=== PATIENT | female | born 1950 | race Caucasian/White ===

== ENCOUNTER 2017-07-18 13:36 | Outpatient (CLI) | payer BC | END 2017-07-18 13:37 | disposition home or self-care (01) | LOC: BICMAMMO 13:36 | PROVIDERS: ATTEND Internal Medicine Hematology & Oncology | DX: Z12.31 Encounter for screening mammogram for malignant neoplasm of breast (principal); R92.1 Mammographic calcification found on diagnostic imaging of breast | CPT/HCPCS: G0206-LT; G0279 ==

== ENCOUNTER 2017-11-29 15:15 | Outpatient (CLI) | payer BC | END 2017-11-29 15:16 | disposition home or self-care (01) | LOC: BICMAMMO 15:15 | PROVIDERS: ATTEND Internal Medicine Hematology & Oncology | DX: M85.80 Other specified disorders of bone density and structure, unspecified site (principal); C50.111 Malignant neoplasm of central portion of right female breast | CPT/HCPCS: 77080 ==

== ENCOUNTER 2018-07-19 14:33 | Outpatient (CLI) | payer BC | END 2018-07-19 14:34 | disposition home or self-care (01) | LOC: BICMAMMO 14:33 | PROVIDERS: ATTEND Internal Medicine Hematology & Oncology | DX: Z08 Encounter for follow-up examination after completed treatment for malignant neoplasm (principal); Z85.3 Personal history of malignant neoplasm of breast; Z80.3 Family history of malignant neoplasm of breast | CPT/HCPCS: G0279 ==

== ENCOUNTER 2019-07-22 14:51 | Outpatient (CLI) | payer BC ==
--- NOTE | 2019-07-22 15:37 | MMO ---
Left Breast MAMMO Unilat Diag [facility]DI LT+KARE[facility]. CLINICAL HISTORY: Patient is 68 years old and is seen for diagnostic exam. The patient has the following family history of breast cancer: sister, at age 65. The patient has a history of malignant (generic) in the left breast at age 65. The patient has a history of right Lumpectomy at age 65 - malignant and right Mastectomy at age 65 - malignant. VIEWS: The views performed were: left craniocaudal with tomosynthesis; left mediolateral oblique with tomosynthesis; left mediolateral with tomosynthesis; and left exaggerated craniocaudal. FILMS COMPARED: The present examination has been compared to prior imaging studies performed at [facility] [place] on [place]/18/[place] and 07/19/2018, and at [facility] on 06/21/2016 and 06/22/2016. This study has been interpreted with the assistance of computer-aided detection. MAMMOGRAM FINDINGS: The breast is heterogeneously dense, which could obscure a lesion on mammography. There are stable benign appearing calcifications seen in the left breast. There are no suspicious masses, suspicious calcifications, or new areas of architectural distortion. IMPRESSION: THERE IS NO MAMMOGRAPHIC EVIDENCE OF MALIGNANCY. A ROUTINE FOLLOW-UP MAMMOGRAM IN 1 YEAR IS RECOMMENDED. THE RESULTS OF THIS EXAM WERE SENT TO THE PATIENT. ACR BI-RADS Category 2 - Benign finding MAMMOGRAPHY NOTE: 1. A negative mammogram report should not delay a biopsy if a dominant of clinically suspicious mass is present. 2. Approximately 10% to 15% of breast cancers are not detected by mammography. 3. Adenosis and dense breasts may obscure an underlying neoplasm. Reported by: FIDELIA HERNANDEZ MD Electonically Signed: [id number]
== END 2019-07-22 14:52 | disposition home or self-care (01) ==
LOC: BICMAMMO 14:51
PROVIDERS: ATTEND Internal Medicine Hematology & Oncology
DX: C50.111 Malignant neoplasm of central portion of right female breast (principal)
CPT/HCPCS: G0279

== ENCOUNTER 2019-11-11 09:23 | Day surgery (SDC) | payer OTHER ==
[~2019-11-11 09:23] MED LIST: Bupivacaine HCl 0.5%/Epinephrine 1:200,000/PF 30 ml Vial ONE; Lidocaine 1% PF 5 ML VIAL ONE; Metoclopramide HCl 10 MG/2 ML VIAL ONE; Ondansetron PF 4 MG/2 ML Vial ONE; PHENYLEPHRINE-NS 100 MCG/ML 10 ML SYRINGE ONE; PROPOFOL 200 MG/20 ML VIAL ONE; Succinylcholine Chloride 20 MG/ML 10 ml SYRINGE FS ONE
[2019-11-11] MEDS ORDERED: Midazolam HCl 2 mg/2 ml Vial ONE ×2 (11:25→13:43)
[2019-11-11] MEDS ORDERED: Fentanyl 100 MCG/2 ML VIAL ONE ×2 (11:25→13:42)
[2019-11-11] MEDS ORDERED: Lidocaine 1% (PF) 30 ML VIAL ONE (11:25)
--- NOTE | 2019-11-11 14:26 | OP ---
DATE OF PROCEDURE: 11/11/2019 PROCEDURE PERFORMED: Open reduction and internal fixation of left distal radius fracture. PREOPERATIVE DIAGNOSIS: Left displaced distal radial fracture. POSTOPERATIVE DIAGNOSIS: Left displaced distal radial fracture. COMPLICATIONS: None. ESTIMATED BLOOD LOSS: Minimal. LINING STUFFER: Shawn Valdez PA-C IMPLANT: Synthes volar distal radial plate with multiple locking and nonlocking screws. INDICATIONS: Ms. Liang is a 68-year-old female, who fell and fractured her left arm. She was indicated for open reduction and internal fixation of left distal radius. She has been indicated for the procedure to restore anatomic alignment and promote healing. Risks have been reviewed in detail. She elected to proceed with the operation. DESCRIPTION OF PROCEDURE: Ms. Liang was identified in the preoperative holding area. Her correct extremity was marked. She was carried to the operating room. She was positioned supine. General anesthesia was induced. A multidisciplinary time-out was performed. The left upper extremity was prepped and draped in sterile fashion. We began the procedure with incision over the FCR tendon. We dissected down through the subcutaneous tissues to the fascia level. We opened the FCR tendon sheath and retracted the tendon. We opened the deep aspect of the sheath at this point. We then elevated the pronator quadratus muscle from the bone. This exposed the underlying distal radial fracture. We irrigated with copious lavage. We then reduced our fracture with a [place] elevator. We held the fracture in its reduced position with K-wire fixation. We then applied a Synthes volar distal radial plate. An x-ray was taken to confirm position and alignment. We then placed multiple screws proximally as well as multiple locking screws distally. This locked the plate to the bone and held our reduction well. There were no complications. We took final images. We thoroughly irrigated with copious lavage. We then closed the wounds in layers appropriately. A sterile dressing and a splint was placed. The patient was taken to the recovery room at this point in good condition. Job ID: [id number]
--- NOTE | 2019-11-11 14:55 | RAD ---
Exam:Intraprocedure fluoroscopy HISTORY: ORIF left wrist fracture COMPARISON: None FINDINGS: 2 intraprocedural fluoroscopic views demonstrate internal fixation plate traversing the dis breann radius. Near anatomic alignment. Exposure: 17.4 seconds, 0.31 mGy IMPRESSION: Intraprocedure fluoroscopy as above
== END 2019-11-11 16:45 | disposition home or self-care (01) ==
LOC: SDC 09:23
PROVIDERS: ATTEND Orthopaedic Surgery
PROC: 0PSJ04Z Reposition Left Radius with Internal Fixation Device, Open Approach (ICD-10-PCS; principal; 2019-11-11)
PROC: 3E0T3BZ Introduction of Anesthetic Agent into Peripheral Nerves and Plexi, Percutaneous Approach (ICD-10-PCS; principal; 2019-11-11)
DX: S52.502A Unspecified fracture of the lower end of left radius, initial encounter for closed fracture (principal); G89.18 Other acute postprocedural pain; Z88.5 Allergy status to narcotic agent; Z88.6 Allergy status to analgesic agent; Z88.8 Allergy status to other drugs, medicaments and biological substances
CPT/HCPCS: 36416; 76000; 93005; 93010; C1713; J0670; J0690; J2001; J2250; J2405; J2704; J2765; J3010

== ENCOUNTER 2020-07-23 10:12 | Outpatient (CLI) | payer MEDICARE, OTHER ==
--- NOTE | 2020-07-23 10:48 | MMO ---
Left Breast MAMMO Unilat Diag DDI LT+KAREEM. CLINICAL HISTORY: Patient is 69 years old and is seen for diagnostic exam. The patient has the following family history of breast cancer: sister, at age 65. The patient has a history of malignant (generic) in the left breast at age 65. The patient has a history of right Lumpectomy at age 65 - malignant and right Mastectomy at age 65 - malignant. VIEWS: The views performed were: left craniocaudal with tomosynthesis; left mediolateral oblique with tomosynthesis; and left mediolateral with tomosynthesis. FILMS COMPARED: The present examination has been compared to prior imaging studies performed at [facility] on 07/18/2017, 07/19/2018 and 07/22/2019, and at [facility] on 06/22/2016. This study has been interpreted with the assistance of computer-aided detection. MAMMOGRAM FINDINGS: The breast is heterogeneously dense, which could obscure a lesion on mammography. There are stable benign appearing calcifications seen in the left breast. There are no suspicious masses, suspicious calcifications, or new areas of architectural distortion. IMPRESSION: THERE IS NO MAMMOGRAPHIC EVIDENCE OF MALIGNANCY. A ROUTINE FOLLOW-UP MAMMOGRAM IN 1 YEAR IS RECOMMENDED. THE RESULTS OF THIS EXAM WERE SENT TO THE PATIENT. ACR BI-RADS Category 2 - Benign finding MAMMOGRAPHY NOTE: 1. A negative mammogram report should not delay a biopsy if a dominant of clinically suspicious mass is present. 2. Approximately 10% to 15% of breast cancers are not detected by mammography. 3. Adenosis and dense breasts may obscure an underlying neoplasm. Reported by: JEFF HAHN MD Electonically Signed: [id number]
== END 2020-07-23 10:13 | disposition home or self-care (01) ==
LOC: BICMAMMO 10:12
PROVIDERS: ATTEND Internal Medicine Hematology & Oncology
DX: C50.111 Malignant neoplasm of central portion of right female breast (principal); Z98.890 Other specified postprocedural states
CPT/HCPCS: G0279

== ENCOUNTER 2021-07-26 09:57 | Outpatient (CLI) | payer MEDICARE | END 2021-07-26 09:58 | disposition home or self-care (01) | LOC: BICMAMMO 09:57 | PROVIDERS: ATTEND Internal Medicine Hematology & Oncology | DX: Z08 Encounter for follow-up examination after completed treatment for malignant neoplasm (principal); M85.89 Other specified disorders of bone density and structure, multiple sites; Z85.3 Personal history of malignant neoplasm of breast | CPT/HCPCS: 77065; 77080; G0279 ==

== ENCOUNTER 2022-08-12 09:47 | Outpatient (CLI) | payer OTHER | END 2022-08-12 09:48 | disposition home or self-care (01) | LOC: BICMAMMO 09:47 | PROVIDERS: ATTEND Family Medicine | DX: Z12.31 Encounter for screening mammogram for malignant neoplasm of breast (principal); Z98.890 Other specified postprocedural states; Z90.11 Acquired absence of right breast and nipple; Z85.3 Personal history of malignant neoplasm of breast; Z80.3 Family history of malignant neoplasm of breast | CPT/HCPCS: 77063; 77067 ==

== ENCOUNTER 2023-03-06 08:42 | Outpatient (CLI) | payer OTHER ==
[2023-03-06] MEDS ORDERED: Iopamidol 370 76% 100 ML VIAL ONE (09:59)
== END 2023-03-06 08:43 | disposition home or self-care (01) ==
LOC: CT 08:42
PROVIDERS: ATTEND Family Medicine
DX: R59.0 Localized enlarged lymph nodes (principal)
CPT/HCPCS: 70491; 82565

== ENCOUNTER 2023-03-17 09:45 | Outpatient (CLI) | payer OTHER ==
[2023-03-17] MEDS ORDERED: Iopamidol 370 76% 100 ML VIAL ONE (14:07)
== END 2023-03-17 09:46 | disposition home or self-care (01) ==
LOC: CT 09:45
PROVIDERS: ATTEND Family Medicine
DX: R59.0 Localized enlarged lymph nodes (principal); R59.1 Generalized enlarged lymph nodes; R59.9 Enlarged lymph nodes, unspecified; Z85.3 Personal history of malignant neoplasm of breast; J98.59 Other diseases of mediastinum, not elsewhere classified; I31.9 Disease of pericardium, unspecified; Z90.11 Acquired absence of right breast and nipple
CPT/HCPCS: 71260; 74177; 82565; Q9967

== ENCOUNTER 2023-04-17 10:17 | Day surgery (SDC) | payer OTHER ==
[2023-04-14 11:16] VITALS: BMI 29.9
[2023-04-17] MEDS ORDERED: Acetaminophen 500 MG TAB ONE (12:57)
[2023-04-17] MEDS ORDERED: Ketorolac Tromethamine 30 MG/ML VIAL ONE (12:57)
[2023-04-17 13:39] LABS: #Eosinphils 0.3 thou/uL (0.0-0.7); #Monocytes 0.5 thou/uL (0.11-0.59); #Neutrophils 3.9 thou/uL (1.40-6.50); %Basophils 0.5 % (0.0-1.0); %Eosinophils 4.7 % (0.0-10.0); %Lymphocytes 24.6 % (21.0-51.0); %Monocytes 7.6 % (0.0-10.0); %Neutrophils 61.8 % (42.0-75.0); Hematocrit 42.9 % (36.0-47.0); Hemoglobin 13.7 g/dL (12.0-16.0); Mean Corpuscular HGB CONC 31.9 g/dL (32.0-36.0); Mean Corpuscular Hemoglobin 28.4 pg (27.0-31.0); Mean Corpuscular Volume 88.8 fl (78.0-98.0); Mean Platelet Volume 11.5 fL (7.4-10.4); Platelet Count 313 10x3/uL (130-400); RBC Distribution Width 14.6 % (11.5-14.5); Red Blood Cell (RBC) Count 4.83 mill/uL (4.20-5.40); White Blood Cell (WBC) Count 6.2 10x3/uL (4.8-10.8)
[2023-04-17 13:59] LABS: Anion Gap 17 mmol/L (10-20); BUN (Urea Nitrogen) 20 mg/dL (9.8-20.1); Calc. Creatinine Clearance 59 mL/min (70-130); Carbon Dioxide 29 mmol/L (23-31); Chloride 98 mmol/L (98-107); Estimated GFR 53; Glucose 90 mg/dL (83-110); Potassium 3.6 mmol/L (3.5-5.1); Sodium 140 mmol/L (136-145)
[2023-04-17] MEDS ORDERED: Sodium Chloride 0.9% 100 ML ONE (15:08)
[2023-04-17] MEDS ORDERED: CEFAZOLIN 2 GM VIAL ONE (15:08)
[2023-04-17] MEDS ORDERED: fentaNYL PF 100 MCG/2 ML SYRINGE ONE (15:35)
[2023-04-17] MEDS ORDERED: Dexamethasone 20 MG/5 ML VIAL ONE (15:45)
[2023-04-17] MEDS ORDERED: PROPOFOL 200 MG/20 ML VIAL ONE (15:45)
[2023-04-17] MEDS ORDERED: ePHEDrine Sulfate 50 MG/10 ML VIAL ONE (15:45)
[2023-04-17] MEDS ORDERED: Lidocaine 1% PF 5 ML VIAL ONE (15:45)
[2023-04-17] MEDS ORDERED: Ondansetron PF 4 MG/2 ML Vial ONE (15:45)
== END 2023-04-17 17:50 | disposition home or self-care (01) ==
LOC: SDC 10:17
PROVIDERS: ATTEND Specialist
PROC: 0JH60WZ Insertion of Totally Implantable Vascular Access Device into Chest Subcutaneous Tissue and Fascia, Open Approach (ICD-10-PCS; principal; 2023-04-17)
PROC: 0H95XZX Drainage of Chest Skin, External Approach, Diagnostic (ICD-10-PCS; 2023-04-17)
DX: C50.911 Malignant neoplasm of unspecified site of right female breast (principal); D05.01 Lobular carcinoma in situ of right breast; R22.1 Localized swelling, mass and lump, neck; E11.9 Type 2 diabetes mellitus without complications; I10 Essential (primary) hypertension; Z88.8 Allergy status to other drugs, medicaments and biological substances; Z88.6 Allergy status to analgesic agent; Z87.891 Personal history of nicotine dependence; Z79.899 Other long term (current) drug therapy
CPT/HCPCS: 19083; 36561; 71045; 71046; 80048; 82962; 85025; 93005; C1788; 36416; 88305; 88361; 93010; J1100; J1885; J2405; J2704; J3490

== ENCOUNTER 2023-04-19 10:21 | Outpatient (CLI) | payer OTHER ==
[2023-04-19] MEDS ORDERED: Magnevist 469MG/ML 20 ML VIAL ONE (11:55)
== END 2023-04-19 10:22 | disposition home or self-care (01) ==
LOC: PET 10:21
PROVIDERS: ATTEND Internal Medicine Hematology & Oncology
DX: C50.111 Malignant neoplasm of central portion of right female breast (principal); C77.0 Secondary and unspecified malignant neoplasm of lymph nodes of head, face and neck; C78.1 Secondary malignant neoplasm of mediastinum
CPT/HCPCS: 70553; 78815; A9552; A9579

== ENCOUNTER 2023-07-04 09:30 | Outpatient (CLI) | payer OTHER | END 2023-07-04 09:31 | disposition home or self-care (01) | LOC: PET 09:30 | PROVIDERS: ATTEND Internal Medicine Hematology & Oncology | DX: C50.111 Malignant neoplasm of central portion of right female breast (principal); C77.0 Secondary and unspecified malignant neoplasm of lymph nodes of head, face and neck | CPT/HCPCS: 78815; A9552 ==

== ENCOUNTER 2023-07-21 08:29 | Outpatient (CLI) | payer OTHER ==
[2023-07-21 09:59] LABS: #Eosinphils 0.1 10x3/uL (0.0-0.5); #Monocytes 0.3 10x3/uL (0.0-1.1); #Neutrophils 2.2 10x3/uL (1.5-8.4); %Basophils 0.8 % (0.0-2.0); %Eosinophils 3.7 % (0.0-6.0); %Lymphocytes 30.8 % (18.0-47.0); %Monocytes 7.8 % (0.0-10.0); %Neutrophils 56.1 % (40.0-75.0); Hematocrit 31.7 % (34.9-44.5); Hemoglobin 10.4 g/dL (12.0-15.5); Mean Corpuscular HGB CONC 32.8 g/dL (32.0-36.0); Mean Corpuscular Hemoglobin 31.1 pg (27.0-33.0); Mean Corpuscular Volume 94.9 fl (81.6-98.3); Mean Platelet Volume 10.9 fl (7.4-10.4); Platelet Count 334 10x3/uL (150-450); RBC Distribution Width 20.6 % (11.5-14.5); Red Blood Cell (RBC) Count 3.34 10x6/uL (3.90-5.03); White Blood Cell (WBC) Count 3.8 10x3/uL (3.5-10.5)
[2023-07-21 10:17] LABS: Anion Gap 19 mmol/L (10-20); BUN (Urea Nitrogen) 29 mg/dL (9.8-20.1); Calc. Creatinine Clearance 0 mL/min (70-130); Calcium 9.1 mg/dL (7.8-10.44); Carbon Dioxide 22 mmol/L (23-31); Chloride 104 mmol/L (98-107); Estimated GFR 46; Glucose 142 mg/dL (83-110); Sodium 141 mmol/L (136-145)
[2023-07-21 12:48] LABS: Hemoglobin A1c 6.4 % (4.0-6.0)
== END 2023-07-21 08:30 | disposition home or self-care (01) ==
LOC: LABBT 08:29
PROVIDERS: ATTEND Specialist
DX: Z01.818 Encounter for other preprocedural examination (principal); C18.7 Malignant neoplasm of sigmoid colon
CPT/HCPCS: 71046; 80048; 82378; 83036; 85025; 93005; 93010

== ENCOUNTER 2023-07-21 14:00 | Inpatient (IN) | payer OTHER ==
[2023-07-21 08:51] VITALS: BMI 30.9
[2023-07-24] MEDS ORDERED: Acetaminophen 500 MG TAB ONE (11:24)
[2023-07-24] MEDS ORDERED: Ketorolac Tromethamine 30 MG/ML VIAL ONE ×2 (11:24→17:33)
[2023-07-24] MEDS ORDERED: SUGAMMADEX SODIUM 200 MG/2 ML VIAL ONE (12:21)
[2023-07-24] MEDS ORDERED: Vasopressin 20 UNITS/ML VIAL ONE (12:21)
[2023-07-24] MEDS ORDERED: fentaNYL 50 mcg/mL 1 mL Vial ONE ×2 (12:21→17:11)
[2023-07-24] MEDS ORDERED: Famotidine/PF 20 mg/2ml Vial ONE (12:22)
[2023-07-24] MEDS ORDERED: Sevoflurane 250 ML INH ANEST BOTTLE ONE (12:22)
[2023-07-24] MEDS ORDERED: EPINEPHrine 1 MG/ML VIAL ONE (12:23)
[2023-07-24] MEDS ORDERED: Bupivacaine 0.25% HCL 30 ML VIAL ONE (12:23)
[2023-07-24] MEDS ORDERED: Midazolam HCl 2 mg/2 ml Vial ONE (12:24)
[2023-07-24] MEDS ORDERED: Lidocaine 1% (PF) 30 ML VIAL ONE ×2 (12:25→12:35)
[2023-07-24] MEDS ORDERED: PROPOFOL 20 ML ONE (12:28)
[2023-07-24] MEDS ORDERED: Rocuronium Bromide 10 MG/ML (10ML VIAL) ONE ×2 (12:29→12:37)
[2023-07-24] MEDS ORDERED: Ondansetron PF 4 MG/2 ML Vial ONE ×3 (12:29→12:37)
[2023-07-24] MEDS ORDERED: PHENYLEPHRINE-NS 100 MCG/ML 10 ML SYRINGE ONE ×2 (12:29→12:37)
[2023-07-24] MEDS ORDERED: Lidocaine 2% PF 5 ML VIAL ONE (12:29)
[2023-07-24] MEDS ORDERED: PROPOFOL 200 MG/20 ML VIAL ONE (12:37)
[2023-07-24] MEDS ORDERED: Lidocaine 1% PF 5 ML VIAL ONE (12:37)
[2023-07-24] MEDS ORDERED: ePHEDrine Sulfate 50 MG/10 ML VIAL ONE ×2 (12:37→13:32)
[2023-07-24] MEDS ORDERED: Ropivacaine 2% HCl/PF (20 MG/10 ML VIAL) ONE (12:45)
[2023-07-24] MEDS ORDERED: Ropivacaine 0.5% HCl/PF (150 MG/30 ML VIAL) ONE (12:45)
[2023-07-24] MEDS ORDERED: Sodium Chloride 0.9% 100 ML ONE (12:54)
[2023-07-24] MEDS ORDERED: cefOXitin 2 GM VIAL ONE (12:54)
[2023-07-24] MEDS ORDERED: Ipratropium/Albuterol 3 ML NEB NEB PRN (16:04)
[2023-07-24] MEDS ORDERED: Insulin Regular 300 UNITS/3 ML VIAL SC PRN (16:04)
[2023-07-24] MEDS ORDERED: Morphine 2 MG/ML VIAL SLOW IVP PRN (16:04)
[2023-07-24] MEDS ORDERED: hydrALAZINE 20 MG/ML VIAL SLOW IVP PRN (16:04)
[2023-07-24] MEDS ORDERED: Promethazine HCl 25 MG/ML VIAL IM PRN ×2 (16:04)
[2023-07-24] MEDS ORDERED: Ondansetron HCl/PF 4 MG/2 ML Vial IVP PRN (16:04)
[2023-07-24] MEDS: Ketorolac Tromethamine 30 MG/ML VIAL IVP SCH ×2 (17:32→23:18)
[2023-07-24] MEDS: Morphine 4 MG/ML VIAL SLOW IVP PRN ×2 (19:38→23:17)
[2023-07-24] MEDS: Famotidine/PF 20 mg/2ml Vial SLOW IVP SCH (19:39)
[2023-07-24] MEDS: Ondansetron PF 4 MG/2 ML Vial IVP PRN (19:39)
[2023-07-24] MEDS: 1/2 NS w/KCL 20 mEq 1,000 ML IV SCH (22:51)
[2023-07-24] MEDS: Famotidine 20 MG TAB PO SCH (23:19)
[2023-07-25] MEDS: 1/2 NS w/KCL 20 mEq 1,000 ML IV SCH ×3 (01:33→17:55)
[2023-07-25] MEDS: Ketorolac Tromethamine 30 MG/ML VIAL IVP SCH ×4 (05:54→23:41)
[2023-07-25 07:16] LABS: #Monocytes 0.3 thou/uL (0.11-0.59); #Neutrophils 3.9 thou/uL (1.40-6.50); %Basophils 0.2 % (0.0-1.0); %Eosinophils 0.2 % (0.0-10.0); %Lymphocytes 14.3 % (21.0-51.0); %Monocytes 5.9 % (0.0-10.0); %Neutrophils 79.2 % (42.0-75.0); Hemoglobin 9.7 g/dL (12.0-16.0); Mean Corpuscular HGB CONC 32.3 g/dL (32.0-36.0); Mean Corpuscular Hemoglobin 32.1 pg (27.0-31.0); Mean Corpuscular Volume 99.3 fl (78.0-98.0); Mean Platelet Volume 10.3 fL (7.4-10.4); Platelet Count 260 10x3/uL (130-400); RBC Distribution Width 21.5 % (11.5-14.5); Red Blood Cell (RBC) Count 3.02 mill/uL (4.20-5.40)
[2023-07-25 07:31] LABS: Anion Gap 14 mmol/L (10-20); BUN (Urea Nitrogen) 15 mg/dL (9.8-20.1); Calc. Creatinine Clearance 62 mL/min (70-130); Carbon Dioxide 24 mmol/L (23-31); Chloride 105 mmol/L (98-107); Estimated GFR 57; Glucose 112 mg/dL (83-110); Sodium 139 mmol/L (136-145)
[2023-07-25] MEDS: Lisinopril 20 MG TAB PO SCH (08:29)
[2023-07-25] MEDS: Amlodipine 10 MG TAB PO SCH (08:29)
[2023-07-25] MEDS: Hydrochlorothiazide 25 MG TAB PO SCH (08:30)
[2023-07-25] MEDS: dilTIAZem CD 180 MG CAP PO SCH (08:32)
[2023-07-25] MEDS: Glimepiride 4 MG TAB PO SCH (08:34)
[2023-07-25] MEDS ORDERED: TURMERIC ROOT EXTRACT PO SCH (09:00)
[2023-07-25] MEDS ORDERED: Pioglitazone HCl 15 MG TAB PO SCH ×2 (09:00→21:00)
[2023-07-25] MEDS ORDERED: TURMERIC PO SCH (09:00)
[2023-07-25] MEDS: Ondansetron PF 4 MG/2 ML Vial IVP PRN (19:37)
[2023-07-25] MEDS: Famotidine 20 MG TAB PO SCH (21:45)
[2023-07-25] MEDS: Famotidine/PF 20 mg/2ml Vial SLOW IVP SCH (21:52)
[2023-07-26] MEDS: 1/2 NS w/KCL 20 mEq 1,000 ML IV SCH ×4 (01:25→11:26)
[2023-07-26] MEDS: Ketorolac Tromethamine 30 MG/ML VIAL IVP SCH ×2 (04:46→11:24)
[2023-07-26] MEDS: Lisinopril 20 MG TAB PO SCH (10:11)
[2023-07-26] MEDS: Amlodipine 10 MG TAB PO SCH (10:12)
[2023-07-26] MEDS: Glimepiride 4 MG TAB PO SCH (10:13)
[2023-07-26] MEDS: Hydrochlorothiazide 25 MG TAB PO SCH (10:13)
[2023-07-26] MEDS: dilTIAZem CD 180 MG CAP PO SCH (10:14)
[2023-07-26 10:38] LABS: #Eosinphils 0.1 thou/uL (0.0-0.7); #Monocytes 0.5 thou/uL (0.11-0.59); #Neutrophils 4.2 thou/uL (1.40-6.50); %Basophils 0.3 % (0.0-1.0); %Eosinophils 1.8 % (0.0-10.0); %Lymphocytes 18.3 % (21.0-51.0); %Monocytes 8.9 % (0.0-10.0); %Neutrophils 70.2 % (42.0-75.0); Hematocrit 25.8 % (36.0-47.0); Hemoglobin 8.2 g/dL (12.0-16.0); Mean Corpuscular HGB CONC 31.8 g/dL (32.0-36.0); Mean Corpuscular Hemoglobin 31.3 pg (27.0-31.0); Mean Corpuscular Volume 98.5 fl (78.0-98.0); Mean Platelet Volume 10.3 fL (7.4-10.4); Platelet Count 242 10x3/uL (130-400); Red Blood Cell (RBC) Count 2.62 mill/uL (4.20-5.40)
[2023-07-26 11:03] LABS: Anion Gap 12 mmol/L (10-20); BUN (Urea Nitrogen) 16 mg/dL (9.8-20.1); Calc. Creatinine Clearance 42 mL/min (70-130); Calcium 7.7 mg/dL (7.8-10.44); Carbon Dioxide 24 mmol/L (23-31); Chloride 103 mmol/L (98-107); Estimated GFR 36; Glucose 66 mg/dL (83-110); Potassium 4.6 mmol/L (3.5-5.1); Sodium 134 mmol/L (136-145)
[2023-07-26 12:04] VITALS: BP 118/67; TEMP 98.3
== END 2023-07-26 16:05 | disposition home or self-care (01) | DRG 331 ==
LOC: SURG A 07-24 10:33 → SJJU 07-24 18:52
PROVIDERS: ADMIT Specialist; ATTEND Specialist
PROC: 0DTN4ZZ Resection of Sigmoid Colon, Percutaneous Endoscopic Approach (ICD-10-PCS; principal; 2023-07-24)
PROC: 3E033XZ Introduction of Vasopressor into Peripheral Vein, Percutaneous Approach (ICD-10-PCS; 2023-07-24)
DX: C18.7 Malignant neoplasm of sigmoid colon (principal); R22.31 Localized swelling, mass and lump, right upper limb; Z79.899 Other long term (current) drug therapy; E11.9 Type 2 diabetes mellitus without complications; I10 Essential (primary) hypertension; Z98.890 Other specified postprocedural states; Z83.3 Family history of diabetes mellitus; Z82.49 Family history of ischemic heart disease and other diseases of the circulatory system; Z87.891 Personal history of nicotine dependence
CPT/HCPCS: 36416; 80048; 85025; 88309; 93005; 93010; A4314; A4649; J0171; J0694; J1642; J1650; J1885; J2001; J2250; J2270; J2272; J2405; J2704; J2795; J3010; J3480; J3490; S0020; S0028

== ENCOUNTER 2024-02-20 10:19 | Outpatient (CLI) | payer OTHER | END 2024-02-20 10:20 | disposition home or self-care (01) | LOC: SCSMRI 10:19 | PROVIDERS: ATTEND Internal Medicine Hematology & Oncology | DX: R11.2 Nausea with vomiting, unspecified (principal); C50.111 Malignant neoplasm of central portion of right female breast; C18.7 Malignant neoplasm of sigmoid colon; C77.0 Secondary and unspecified malignant neoplasm of lymph nodes of head, face and neck; R90.89 Other abnormal findings on diagnostic imaging of central nervous system | CPT/HCPCS: 70553; 76377 ==

== ENCOUNTER 2024-02-20 13:59 | Inpatient (IN) | payer OTHER ==
[2024-02-20 16:02] LABS: #Basophils Less than 0.03 10x3/uL (0.0-0.2); #Eosinphils Less than 0.03 10x3/uL (0.0-0.7); %Basophils 0.1 % (0.0-1.0); %Eosinophils 0.1 % (0.0-10.0); %Lymphocytes 5.8 % (21.0-51.0); %Monocytes 1.2 % (0.0-10.0); %Neutrophils 92.2 % (42.0-75.0); Hemoglobin 10.3 g/dL (12.0-16.0); Mean Corpuscular HGB CONC 33.2 g/dL (32.0-36.0); Mean Corpuscular Volume 93.4 fL (78.0-98.0); Mean Platelet Volume 10.9 fL (7.4-10.4); Platelet Count 352 10x3/uL (130-400); RBC Distribution Width 15.1 % (11.5-14.5); Red Blood Cell (RBC) Count 3.32 mill/uL (4.20-5.40)
[2024-02-20] MEDS ORDERED: traMADol HCl 50 MG TAB ONE (16:17)
[2024-02-20 16:22] LABS: ALT (SGPT) 19 U/L (8-55); AST (SGOT) 38 U/L (5-34); Albumin 3.8 g/dL (3.4-4.8); Alkaline Phosphatase 70 U/L (40-110); Anion Gap 25 mmol/L (10-20); BUN (Urea Nitrogen) 97 mg/dL (9.8-20.1); Bilirubin, Total 0.4 mg/dL (0.2-1.2); Calc. Creatinine Clearance 0 mL/min (70-130); Calcium 8.8 mg/dL (7.8-10.44); Carbon Dioxide 15 mmol/L (23-31); Chloride 95 mmol/L (98-107); Estimated GFR 5; Globulin 3.6 g/dL (2.4-3.5); Glucose 68 mg/dL (83-110); Potassium 4.4 mmol/L (3.5-5.1); Protein, Total 7.4 g/dL (5.8-8.1); Sodium 131 mmol/L (136-145)
[2024-02-20 16:27] LABS: Troponin I 0.079 ng/mL (< 0.028)
[2024-02-20 16:40] LABS: INR-International Normal Ratio 1.1; PTT 23.6 sec (22.9-36.1)
[2024-02-20 16:59] LABS: Bacteria/HPF 3+ HPF (None Seen); Bilirubin Negative (Negative); Blood, Urine 1+ (Negative); CAUTI Indications for Culture Dysuria,urgency,freq; Clarity Turbid (Clear); Glucose, Urine (Dipstick) Normal (Negative); Ketone, Urine Negative (Negative); Leukocyte 500 Leu/uL (Negative); Nitrite Negative (Negative); Protein, Urine (Dipstick) 50 mg/dL (Neg-Trace); Specific Gravity, Urine 1.018 (1.002-1.036); Squamous Epithelial 0-3 HPF (0-3); Urobilinogen Normal mg/dL (Less than 2); WBC/HPF 21-50 HPF (0-3)
[2024-02-20 17:07] LABS: Urine Culture Reflex Yes Yes
[2024-02-20] MEDS ORDERED: Lidocaine/Transparent Dressing 1 EACH KIT ONE (17:46)
[2024-02-20] MEDS ORDERED: Bisacodyl 5 MG TAB PO PRN (19:27)
[2024-02-20] MEDS ORDERED: Glucagon 1 MG/ML KIT IM PRN (19:41)
[2024-02-20] MEDS ORDERED: Dextrose 50% Abboject 50 ML SYRINGE SLOW IVP PRN (19:41)
[2024-02-20] MEDS ORDERED: HumaLOG 300 UNITS/3 ML VIAL SC PRN ×2 (19:41)
[2024-02-20] MEDS ORDERED: Dextrose 5% in Water 1,000 ML IV PRN (19:41)
[2024-02-20 20:17] LABS: Troponin I 0.069 ng/mL (< 0.028)
[2024-02-20] MEDS ORDERED: Clopidogrel Bisulfate 75 MG TAB ONE (20:32)
[2024-02-20] MEDS ORDERED: cefTRIAXone (ROCEPHIN) 2 GM VIAL ONE (20:32)
[2024-02-20] MEDS ORDERED: Sodium Chloride 0.9% 100 ML ONE (20:32)
[2024-02-20 21:50] VITALS: BMI 27.6
[2024-02-20 21:53] LABS: Lactic Acid 1.2 mmol/L (0.5-2.2)
[2024-02-20 22:02] LABS: Troponin I 0.066 ng/mL (< 0.028)
[2024-02-20] MEDS: Famotidine 20 MG TAB PO SCH (22:13)
[2024-02-20] MEDS: Heparin 5,000 UNITS/ML VIAL SC SCH (22:14)
[2024-02-20] MEDS: Lactated Ringer's 1,000 ML IV SCH ×2 (22:54)
[2024-02-21 07:36] LABS: #Basophils Less than 0.03 10x3/uL (0.0-0.2); #Eosinphils Less than 0.03 10x3/uL (0.0-0.7); %Lymphocytes 13.1 % (21.0-51.0); %Monocytes 7.2 % (0.0-10.0); %Neutrophils 79.2 % (42.0-75.0); Hematocrit 27.9 % (36.0-47.0); Hemoglobin 9.4 g/dL (12.0-16.0); Mean Corpuscular HGB CONC 33.7 g/dL (32.0-36.0); Mean Corpuscular Hemoglobin 30.8 pg (27.0-31.0); Mean Corpuscular Volume 91.5 fL (78.0-98.0); Mean Platelet Volume 10.6 fL (7.4-10.4); Platelet Count 282 10x3/uL (130-400); RBC Distribution Width 14.9 % (11.5-14.5); Red Blood Cell (RBC) Count 3.05 mill/uL (4.20-5.40)
[2024-02-21 07:45] LABS: Hemoglobin A1c 5.7 % (4.0-6.0)
[2024-02-21 08:16] LABS: ALT (SGPT) 16 U/L (8-55); AST (SGOT) 32 U/L (5-34); Albumin 3.2 g/dL (3.4-4.8); Alkaline Phosphatase 66 U/L (40-110); Anion Gap 18 mmol/L (10-20); BUN (Urea Nitrogen) 98 mg/dL (9.8-20.1); Bilirubin, Total 0.3 mg/dL (0.2-1.2); Calc. Creatinine Clearance 9 mL/min (70-130); Calcium 8.7 mg/dL (7.8-10.44); Carbon Dioxide 16 mmol/L (23-31); Cardiac Risk 3.7 (Less than 4.5); Chloride 100 mmol/L (98-107); Cholesterol 138 mg/dl (< 200 Desired); Estimated GFR 6; Globulin 3.3 g/dL (2.4-3.5); Glucose 100 mg/dL (83-110); HDL Cholesterol 37 mg/dL (>60 Neg Risk); LDL Cholesterol, Calculated 28 mg/dL; Potassium 4.1 mmol/L (3.5-5.1); Protein, Total 6.5 g/dL (5.8-8.1); Sodium 130 mmol/L (136-145); Triglycerides 364 mg/dL (Less than 150)
[2024-02-21] MEDS: Amlodipine 10 MG TAB PO SCH (09:36)
[2024-02-21] MEDS: Multivit, Therapeutic 1 TAB PO SCH (09:36)
[2024-02-21] MEDS: Cyanocobalamin (Vitamin B-12) 1,000 MCG TAB PO SCH (09:36)
[2024-02-21] MEDS: Clopidogrel Bisulfate 75 MG TAB PO SCH (09:37)
[2024-02-21] MEDS: Calcium Carbonate 500 MG TAB PO SCH (09:37)
[2024-02-21] MEDS: Venlafaxine XR 37.5 MG CAP PO SCH (09:38)
[2024-02-21] MEDS: Fish Oil 1,000 MG CAP PO SCH (09:38)
[2024-02-21] MEDS: dilTIAZem CD 180 MG CAP PO SCH (09:38)
[2024-02-21] MEDS: Lactated Ringer's 1,000 ML IV SCH (13:34)
[2024-02-21] MEDS: (Garlic [Garlic] 1 TABLET Tablet) PO SCH (15:01)
[2024-02-21] MEDS: (Cinnamon Bark [Cinnamon] 500 MG Capsule) PO SCH (15:01)
[2024-02-21] MEDS ORDERED: Promethazine 25 MG TAB PO PRN (16:32)
[2024-02-21] MEDS: Acetaminophen 325 MG TAB PO PRN (16:46)
[2024-02-21] MEDS ORDERED: Fenofibrate Nanocrystallized 145 MG TAB PO SCH (21:00)
[2024-02-21] MEDS ORDERED: FENOFIBRATE MICRONIZED 134 MG PO SCH (21:00)
[2024-02-21] MEDS: Aspirin 81 mg Enteric Coated Tablet PO SCH (21:27)
[2024-02-21] MEDS: Heparin 5,000 UNITS/ML VIAL SC SCH (21:28)
[2024-02-22 04:54] LABS: #Basophils Less than 0.03 10x3/uL (0.0-0.2); %Basophils 0.3 % (0.0-1.0); %Eosinophils 2.2 % (0.0-10.0); %Lymphocytes 21.3 % (21.0-51.0); %Monocytes 8.6 % (0.0-10.0); %Neutrophils 66.9 % (42.0-75.0); Hematocrit 24.8 % (36.0-47.0); Hemoglobin 8.1 g/dL (12.0-16.0); Mean Corpuscular HGB CONC 32.7 g/dL (32.0-36.0); Mean Corpuscular Hemoglobin 29.8 pg (27.0-31.0); Mean Corpuscular Volume 91.2 fL (78.0-98.0); Mean Platelet Volume 11.2 fL (7.4-10.4); Platelet Count 276 10x3/uL (130-400); RBC Distribution Width 15.1 % (11.5-14.5); Red Blood Cell (RBC) Count 2.72 mill/uL (4.20-5.40)
[2024-02-22 05:24] LABS: ALT (SGPT) 15 U/L (8-55); AST (SGOT) 27 U/L (5-34); Albumin 2.9 g/dL (3.4-4.8); Alkaline Phosphatase 65 U/L (40-110); Anion Gap 19 mmol/L (10-20); BUN (Urea Nitrogen) 89 mg/dL (9.8-20.1); Bilirubin, Total 0.1 mg/dL (0.2-1.2); Calc. Creatinine Clearance 14 mL/min (70-130); Calcium 8.4 mg/dL (7.8-10.44); Carbon Dioxide 17 mmol/L (23-31); Chloride 106 mmol/L (98-107); Estimated GFR 11; Globulin 2.9 g/dL (2.4-3.5); Glucose 90 mg/dL (83-110); Protein, Total 5.8 g/dL (5.8-8.1); Sodium 138 mmol/L (136-145)
[2024-02-22] MEDS ORDERED: Insulin Lispro 100 UNIT/ML 10 ML VIAL SC PRN ×2 (12:45)
[2024-02-22] MEDS: Lactated Ringer's 1,000 ML IV SCH (15:08)
[2024-02-22] MEDS: Famotidine 20 MG TAB PO SCH (22:03)
[2024-02-23 06:27] LABS: #Basophils Less than 0.03 10x3/uL (0.0-0.2); %Basophils 0.4 % (0.0-1.0); %Eosinophils 3.7 % (0.0-10.0); %Lymphocytes 30.3 % (21.0-51.0); %Monocytes 7.9 % (0.0-10.0); %Neutrophils 57.3 % (42.0-75.0); Hematocrit 24.1 % (36.0-47.0); Hemoglobin 7.6 g/dL (12.0-16.0); Mean Corpuscular HGB CONC 31.5 g/dL (32.0-36.0); Mean Corpuscular Hemoglobin 30.6 pg (27.0-31.0); Mean Corpuscular Volume 97.2 fL (78.0-98.0); Mean Platelet Volume 11.2 fL (7.4-10.4); Platelet Count 259 10x3/uL (130-400); RBC Distribution Width 14.9 % (11.5-14.5); Red Blood Cell (RBC) Count 2.48 mill/uL (4.20-5.40)
[2024-02-23 10:06] LABS: ALT (SGPT) 17 U/L (8-55); AST (SGOT) 27 U/L (5-34); Albumin 3.2 g/dL (3.4-4.8); Alkaline Phosphatase 60 U/L (40-110); Anion Gap 15 mmol/L (10-20); BUN (Urea Nitrogen) 60 mg/dL (9.8-20.1); Bilirubin, Total 0.2 mg/dL (0.2-1.2); Calc. Creatinine Clearance 26 mL/min (70-130); Calcium 9.3 mg/dL (7.8-10.44); Carbon Dioxide 23 mmol/L (23-31); Chloride 106 mmol/L (98-107); Estimated GFR 23; Globulin 3.1 g/dL (2.4-3.5); Glucose 98 mg/dL (83-110); Potassium 4.7 mmol/L (3.5-5.1); Protein, Total 6.3 g/dL (5.8-8.1); Sodium 139 mmol/L (136-145)
[2024-02-23 13:29] VITALS: BP 158/77; TEMP 97.9
== END 2024-02-23 14:57 | disposition home or self-care (01) | DRG 65 ==
LOC: ERS 13:59 → ERHOLD 17:33 → 2SE 17:35
PROVIDERS: ADMIT Family Medicine; ATTEND Family Medicine
DX: I63.9 Cerebral infarction, unspecified (principal); C18.7 Malignant neoplasm of sigmoid colon; C78.5 Secondary malignant neoplasm of large intestine and rectum; E87.1 Hypo-osmolality and hyponatremia; S42.212A Unspecified displaced fracture of surgical neck of left humerus, initial encounter for closed fracture; E87.20 Acidosis, unspecified; N17.9 Acute kidney failure, unspecified; M62.82 Rhabdomyolysis; N39.0 Urinary tract infection, site not specified; C77.0 Secondary and unspecified malignant neoplasm of lymph nodes of head, face and neck; E78.5 Hyperlipidemia, unspecified; D64.9 Anemia, unspecified; F32.A Depression, unspecified; W19.XXXA Unspecified fall, initial encounter; C50.919 Malignant neoplasm of unspecified site of unspecified female breast; E86.0 Dehydration; T45.1X5A Adverse effect of antineoplastic and immunosuppressive drugs, initial encounter; E11.22 Type 2 diabetes mellitus with diabetic chronic kidney disease; N18.30 Chronic kidney disease, stage 3 unspecified; I12.9 Hypertensive chronic kidney disease with stage 1 through stage 4 chronic kidney disease, or unspecified chronic kidney disease; R79.89 Other specified abnormal findings of blood chemistry; Z79.899 Other long term (current) drug therapy; C50.111 Malignant neoplasm of central portion of right female breast; R11.2 Nausea with vomiting, unspecified; R90.89 Other abnormal findings on diagnostic imaging of central nervous system
CPT/HCPCS: 36415; 36416; 70553; 71045; 76377; 76770; 80053; 80061; 81001; 82010; 82550; 82570; 83036; 83605; 84300; 84439; 84443; 84484; 85025; 85610; 85730; 87086; 93005; 93306; 93880; 96374; J0696; J1644; J3490; J7120

== ENCOUNTER 2024-02-26 13:33 | Emergency (ER) | payer OTHER ==
[2024-02-26] MEDS ORDERED: Ondansetron PF 4 MG/2 ML Vial ONE (16:17)
[2024-02-26 16:23] LABS: #Basophils Less than 0.03 10x3/uL (0.0-0.2); %Basophils 0.1 % (0.0-1.0); %Eosinophils 1.1 % (0.0-10.0); %Lymphocytes 13.4 % (21.0-51.0); %Monocytes 4.5 % (0.0-10.0); %Neutrophils 80.1 % (42.0-75.0); Hematocrit 26.4 % (36.0-47.0); Hemoglobin 8.6 g/dL (12.0-16.0); Mean Corpuscular HGB CONC 32.6 g/dL (32.0-36.0); Mean Corpuscular Hemoglobin 30.5 pg (27.0-31.0); Mean Corpuscular Volume 93.6 fL (78.0-98.0); Mean Platelet Volume 10.6 fL (7.4-10.4); Platelet Count 350 10x3/uL (130-400); RBC Distribution Width 15.2 % (11.5-14.5); Red Blood Cell (RBC) Count 2.82 mill/uL (4.20-5.40)
[2024-02-26 16:39] LABS: ALT (SGPT) 26 U/L (8-55); AST (SGOT) 43 U/L (5-34); Albumin 3.5 g/dL (3.4-4.8); Alkaline Phosphatase 64 U/L (40-110); Anion Gap 15 mmol/L (10-20); BUN (Urea Nitrogen) 38 mg/dL (9.8-20.1); Bilirubin, Total 0.2 mg/dL (0.2-1.2); Calc. Creatinine Clearance 0 mL/min (70-130); Carbon Dioxide 21 mmol/L (23-31); Chloride 106 mmol/L (98-107); Estimated GFR 27; Globulin 3.5 g/dL (2.4-3.5); Glucose 106 mg/dL (83-110); Potassium 4.1 mmol/L (3.5-5.1); Sodium 138 mmol/L (136-145)
== END 2024-02-26 17:10 | disposition home or self-care (01) ==
LOC: ERS 13:33
DX: R11.2 Nausea with vomiting, unspecified (principal); R94.4 Abnormal results of kidney function studies; I10 Essential (primary) hypertension; E11.9 Type 2 diabetes mellitus without complications
CPT/HCPCS: 80053; 85025; 93005; J2405; 96361; 96374

== ENCOUNTER 2024-04-26 19:45 | Inpatient (IN) | payer MEDICARE, OTHER ==
[2024-04-26 21:21] LABS: #Basophils Less than 0.03 10x3/uL (0.0-0.2); #Eosinphils Less than 0.03 10x3/uL (0.0-0.7); %Basophils 0.1 % (0.0-1.0); %Lymphocytes 5.7 % (21.0-51.0); %Monocytes 1.1 % (0.0-10.0); %Neutrophils 92.9 % (42.0-75.0); Hematocrit 28.5 % (36.0-47.0); Hemoglobin 9.2 g/dL (12.0-16.0); Mean Corpuscular HGB CONC 32.3 g/dL (32.0-36.0); Mean Corpuscular Volume 83.6 fL (78.0-98.0); Mean Platelet Volume 10.6 fL (7.4-10.4); Platelet Count 332 10x3/uL (130-400); RBC Distribution Width 17.2 % (11.5-14.5); Red Blood Cell (RBC) Count 3.41 mill/uL (4.20-5.40)
[2024-04-26 21:33] LABS: Phosphorus 2.8 mg/dL (2.3-4.7)
[2024-04-26 21:40] LABS: ALT (SGPT) 8 U/L (8-55); AST (SGOT) 20 U/L (5-34); Alkaline Phosphatase 63 U/L (40-110); Anion Gap 16 mmol/L (10-20); BUN (Urea Nitrogen) 36 mg/dL (9.8-20.1); Bilirubin, Total 0.2 mg/dL (0.2-1.2); Calc. Creatinine Clearance 0 mL/min (70-130); Calcium 9.1 mg/dL (7.8-10.44); Carbon Dioxide 22 mmol/L (23-31); Chloride 107 mmol/L (98-107); Estimated GFR 44; Globulin 3.8 g/dL (2.4-3.5); Glucose 31 mg/dL (83-110); Magnesium 1.4 mg/dL (1.6-2.6); Potassium 3.4 mmol/L (3.5-5.1); Protein, Total 6.8 g/dL (5.8-8.1); Sodium 142 mmol/L (136-145)
[2024-04-26] MEDS ORDERED: Ondansetron ODT 4 MG TAB PO PRN (23:28)
[2024-04-26] MEDS ORDERED: Acetaminophen 325 MG TAB PO PRN (23:28)
[2024-04-26] MEDS ORDERED: Dextrose 5% in Water 1,000 ML IV PRN (23:28)
[2024-04-27 00:36] LABS: #Basophils Less than 0.03 10x3/uL (0.0-0.2); #Eosinphils Less than 0.03 10x3/uL (0.0-0.7); %Basophils 0.1 % (0.0-1.0); %Lymphocytes 8.2 % (21.0-51.0); %Monocytes 1.4 % (0.0-10.0); %Neutrophils 89.9 % (42.0-75.0); Hematocrit 30.6 % (36.0-47.0); Hemoglobin 9.4 g/dL (12.0-16.0); Mean Corpuscular HGB CONC 30.7 g/dL (32.0-36.0); Mean Corpuscular Volume 87.9 fL (78.0-98.0); Mean Platelet Volume 10.8 fL (7.4-10.4); Platelet Count 371 10x3/uL (130-400); RBC Distribution Width 17.2 % (11.5-14.5); Red Blood Cell (RBC) Count 3.48 mill/uL (4.20-5.40)
[2024-04-27 00:44] VITALS: BMI 24.9
[2024-04-27] MEDS: Glucagon 1 MG/ML KIT IM PRN (01:00)
[2024-04-27] MEDS ORDERED: Dextrose 10% in Water 250 ML IVPB PRN (01:07)
[2024-04-27] MEDS: Potassium Chloride 20 MEQ TAB PO SCH ×2 (01:13→09:25)
[2024-04-27] MEDS ORDERED: hydrOXYzine 25 MG TAB PO PRN (01:30)
[2024-04-27] MEDS: Magnesium 2 GM/50 ML(in water) 2 GM in Premix 1 BAG IVPB SCH (02:20)
[2024-04-27 03:22] LABS: ALT (SGPT) 7 U/L (8-55); AST (SGOT) 19 U/L (5-34); Albumin 2.9 g/dL (3.4-4.8); Alkaline Phosphatase 60 U/L (40-110); Anion Gap 16 mmol/L (10-20); BUN (Urea Nitrogen) 32 mg/dL (9.8-20.1); Bilirubin, Total 0.3 mg/dL (0.2-1.2); Calc. Creatinine Clearance 45 mL/min (70-130); Calcium 8.7 mg/dL (7.8-10.44); Carbon Dioxide 20 mmol/L (23-31); Chloride 106 mmol/L (98-107); Estimated GFR 51; Globulin 3.5 g/dL (2.4-3.5); Glucose 90 mg/dL (83-110); Magnesium 1.4 mg/dL (1.6-2.6); Potassium 3.7 mmol/L (3.5-5.1); Protein, Total 6.4 g/dL (5.8-8.1); Sodium 138 mmol/L (136-145)
[2024-04-27] MEDS: Dextrose 5 % And 0.9 % NaCl 1,000 ML IV SCH (07:31)
[2024-04-27] MEDS: Dextrose 50% Abboject 50 ML SYRINGE SLOW IVP PRN (07:33)
[2024-04-27 08:07] LABS: Anion Gap 19 mmol/L (10-20); BUN (Urea Nitrogen) 31 mg/dL (9.8-20.1); Calc. Creatinine Clearance 46 mL/min (70-130); Carbon Dioxide 20 mmol/L (23-31); Chloride 104 mmol/L (98-107); Estimated GFR 52; Glucose 50 mg/dL (83-110); Potassium 4.1 mmol/L (3.5-5.1); Sodium 139 mmol/L (136-145)
[2024-04-27 08:43] LABS: Bilirubin Negative (Negative); Blood, Urine 1+ (Negative); Clarity Turbid (Clear); Glucose, Urine (Dipstick) Normal (Negative); Ketone, Urine Negative (Negative); Leukocyte 500 Leu/uL (Negative); Nitrite Negative (Negative); Protein, Urine (Dipstick) Negative (Neg-Trace); Specific Gravity, Urine 1.008 (1.002-1.036); Squamous Epithelial None Seen HPF (0-3); Urobilinogen Normal mg/dL (Less than 2); WBC/HPF Greater than 50 HPF (0-3); pH, Urine 5.5 (5.0-9.0)
[2024-04-27 08:45] LABS: Bacteria/HPF 1+ HPF (None Seen)
[2024-04-27 08:55] LABS: #Basophils Less than 0.03 10x3/uL (0.0-0.2); #Eosinphils Less than 0.03 10x3/uL (0.0-0.7); %Eosinophils 0.1 % (0.0-10.0); %Lymphocytes 8.4 % (21.0-51.0); %Monocytes 0.7 % (0.0-10.0); %Neutrophils 90.4 % (42.0-75.0); Hematocrit 30.6 % (36.0-47.0); Hemoglobin 9.8 g/dL (12.0-16.0); Mean Corpuscular Hemoglobin 27.3 pg (27.0-31.0); Mean Corpuscular Volume 85.2 fL (78.0-98.0); Mean Platelet Volume 10.6 fL (7.4-10.4); Platelet Count 319 10x3/uL (130-400); RBC Distribution Width 17.1 % (11.5-14.5); Red Blood Cell (RBC) Count 3.59 mill/uL (4.20-5.40)
[2024-04-27] MEDS: Venlafaxine HCl XR 75 MG CAP PO SCH (09:25)
[2024-04-27] MEDS: Pantoprazole DR 40 MG TAB PO SCH (09:25)
[2024-04-27] MEDS: Magnesium Oxide 400 MG TAB PO SCH (09:25)
[2024-04-27] MEDS: Multivit, Therapeutic 1 TAB PO SCH (09:25)
[2024-04-27] MEDS: dilTIAZem CD 180 MG CAP PO SCH (09:25)
[2024-04-27] MEDS: Enoxaparin 40 MG (0.4 mL) SYRINGE SC SCH (09:25)
[2024-04-27] MEDS: Niacin 500 MG TAB PO SCH (10:33)
[2024-04-27 10:34] LABS: Magnesium 1.9 mg/dL (1.6-2.6)
[2024-04-27 10:48] LABS: Anion Gap 14 mmol/L (10-20); BUN (Urea Nitrogen) 27 mg/dL (9.8-20.1); Calc. Creatinine Clearance 47 mL/min (70-130); Calcium 9.6 mg/dL (7.8-10.44); Carbon Dioxide 24 mmol/L (23-31); Chloride 104 mmol/L (98-107); Estimated GFR 53; Glucose 47 mg/dL (83-110); Potassium 4.1 mmol/L (3.5-5.1); Sodium 138 mmol/L (136-145)
[2024-04-27] MEDS: Sodium Chloride 154 MEQ in Dextrose 10% in Water 1,000 ML IV SCH (12:35)
[2024-04-27 15:08] LABS: Ref Lab Test Ordered PROINSULIN; Reference Lab Name LABCORP
[2024-04-27] MEDS: cefTRIAXone\\ROCEPHIN 1 GM in Sodium Chloride 0.9% 100 ML IVPB SCH (20:08)
[2024-04-27 21:05] LABS: Anion Gap 11 mmol/L (10-20); BUN (Urea Nitrogen) 22 mg/dL (9.8-20.1); Calc. Creatinine Clearance 50 mL/min (70-130); Calcium 8.6 mg/dL (7.8-10.44); Carbon Dioxide 26 mmol/L (23-31); Chloride 106 mmol/L (98-107); Estimated GFR 57; Glucose 91 mg/dL (83-110); Potassium 4.5 mmol/L (3.5-5.1); Sodium 138 mmol/L (136-145)
[2024-04-28 08:45] LABS: #Basophils Less than 0.03 10x3/uL (0.0-0.2); %Basophils 0.2 % (0.0-1.0); %Eosinophils 4.3 % (0.0-10.0); %Lymphocytes 18.5 % (21.0-51.0); %Monocytes 1.4 % (0.0-10.0); %Neutrophils 75.4 % (42.0-75.0); Hematocrit 27.4 % (36.0-47.0); Hemoglobin 8.3 g/dL (12.0-16.0); Mean Corpuscular HGB CONC 30.3 g/dL (32.0-36.0); Mean Corpuscular Hemoglobin 26.9 pg (27.0-31.0); Mean Platelet Volume 10.7 fL (7.4-10.4); Platelet Count 305 10x3/uL (130-400); RBC Distribution Width 17.3 % (11.5-14.5); Red Blood Cell (RBC) Count 3.08 mill/uL (4.20-5.40)
[2024-04-28 09:02] LABS: ALT (SGPT) 8 U/L (8-55); AST (SGOT) 16 U/L (5-34); Albumin 2.7 g/dL (3.4-4.8); Alkaline Phosphatase 54 U/L (40-110); Anion Gap 13 mmol/L (10-20); BUN (Urea Nitrogen) 18 mg/dL (9.8-20.1); Bilirubin, Total 0.3 mg/dL (0.2-1.2); Calc. Creatinine Clearance 53 mL/min (70-130); Calcium 8.6 mg/dL (7.8-10.44); Carbon Dioxide 23 mmol/L (23-31); Chloride 106 mmol/L (98-107); Estimated GFR 57; Globulin 3.3 g/dL (2.4-3.5); Glucose 112 mg/dL (83-110); Potassium 4.5 mmol/L (3.5-5.1); Sodium 137 mmol/L (136-145)
[2024-04-28] MEDS: Sodium Chloride 154 MEQ in Dextrose 10% in Water 1,000 ML IV SCH (09:53)
[2024-04-28 11:51] LABS: Magnesium 1.6 mg/dL (1.6-2.6)
[2024-04-28] MEDS ORDERED: Dextrose 5 %-0.45 % NaCl 1,000 ML IV SCH (16:00)
[2024-04-28] MEDS: Dextrose 5 % And 0.9 % NaCl 1,000 ML IV SCH (16:19)
[2024-04-29 06:06] LABS: #Basophils Less than 0.03 10x3/uL (0.0-0.2); %Basophils 0.5 % (0.0-1.0); %Eosinophils 5.1 % (0.0-10.0); %Lymphocytes 18.5 % (21.0-51.0); %Monocytes 2.1 % (0.0-10.0); %Neutrophils 73.6 % (42.0-75.0); Hematocrit 25.4 % (36.0-47.0); Hemoglobin 7.7 g/dL (12.0-16.0); Mean Corpuscular HGB CONC 30.3 g/dL (32.0-36.0); Mean Corpuscular Hemoglobin 27.3 pg (27.0-31.0); Mean Corpuscular Volume 90.1 fL (78.0-98.0); Mean Platelet Volume 10.8 fL (7.4-10.4); Platelet Count 262 10x3/uL (130-400); RBC Distribution Width 17.1 % (11.5-14.5); Red Blood Cell (RBC) Count 2.82 mill/uL (4.20-5.40)
[2024-04-29 06:35] LABS: ALT (SGPT) 7 U/L (8-55); AST (SGOT) 14 U/L (5-34); Albumin 2.5 g/dL (3.4-4.8); Alkaline Phosphatase 56 U/L (40-110); Anion Gap 12 mmol/L (10-20); BUN (Urea Nitrogen) 17 mg/dL (9.8-20.1); Bilirubin, Total 0.2 mg/dL (0.2-1.2); Calc. Creatinine Clearance 52 mL/min (70-130); Calcium 8.4 mg/dL (7.8-10.44); Carbon Dioxide 23 mmol/L (23-31); Chloride 106 mmol/L (98-107); Estimated GFR 58; Globulin 3.2 g/dL (2.4-3.5); Glucose 163 mg/dL (83-110); Potassium 4.5 mmol/L (3.5-5.1); Protein, Total 5.7 g/dL (5.8-8.1); Sodium 136 mmol/L (136-145)
[2024-04-29] MEDS: Nitrofurantoin Monohyd/M-Cryst 100 MG CAP PO SCH ×2 (14:30→19:56)
[2024-04-30 09:56] LABS: #Basophils Less than 0.03 10x3/uL (0.0-0.2); %Basophils 0.6 % (0.0-1.0); %Eosinophils 3.1 % (0.0-10.0); %Lymphocytes 19.2 % (21.0-51.0); %Monocytes 3.9 % (0.0-10.0); %Neutrophils 72.6 % (42.0-75.0); Hematocrit 26.1 % (36.0-47.0); Hemoglobin 8.2 g/dL (12.0-16.0); Mean Corpuscular HGB CONC 31.4 g/dL (32.0-36.0); Mean Corpuscular Hemoglobin 27.2 pg (27.0-31.0); Mean Corpuscular Volume 86.7 fL (78.0-98.0); Mean Platelet Volume 10.8 fL (7.4-10.4); Platelet Count 287 10x3/uL (130-400); RBC Distribution Width 16.6 % (11.5-14.5); Red Blood Cell (RBC) Count 3.01 mill/uL (4.20-5.40)
[2024-04-30 11:48] VITALS: BP 136/86; TEMP 98.7
[2024-04-30 13:22] VITALS: BMI 25.7
== END 2024-04-30 12:18 | disposition home or self-care (01) | DRG 638 ==
LOC: ERS 19:45 → MSONC 22:50 → IMCU/EMU 04-27 07:31 → OBSVTOIN 04-27 08:22 → T4-A 04-29 20:21
PROVIDERS: ADMIT Student in an Organized Health Care Education/Training Program; ATTEND Student in an Organized Health Care Education/Training Program
DX: E11.649 Type 2 diabetes mellitus with hypoglycemia without coma (principal); C18.9 Malignant neoplasm of colon, unspecified; N39.0 Urinary tract infection, site not specified; I10 Essential (primary) hypertension; E87.6 Hypokalemia; E83.42 Hypomagnesemia; N17.9 Acute kidney failure, unspecified; T38.3X5A Adverse effect of insulin and oral hypoglycemic [antidiabetic] drugs, initial encounter; C50.919 Malignant neoplasm of unspecified site of unspecified female breast; B96.20 Unspecified Escherichia coli [E. coli] as the cause of diseases classified elsewhere; F32.A Depression, unspecified; Z88.8 Allergy status to other drugs, medicaments and biological substances; Z79.899 Other long term (current) drug therapy; Z87.81 Personal history of (healed) traumatic fracture; Z90.10 Acquired absence of unspecified breast and nipple; Z98.890 Other specified postprocedural states; Z90.49 Acquired absence of other specified parts of digestive tract; Z87.891 Personal history of nicotine dependence
CPT/HCPCS: 36415; 71045; 80053; 81001; 82533; 83525; 83735; 84100; 84305; 84443; 84681; 85025; 87040; 87077; 87086; 87186; 99285; G0378; J0696; J1611; J1642; J1650; J3475; J7042; J7999

== ENCOUNTER 2024-05-14 11:34 | Outpatient (CLI) | payer OTHER | END 2024-05-14 11:35 | disposition home or self-care (01) | LOC: LABBT 11:34 | PROVIDERS: ATTEND Urology | DX: Z01.812 Encounter for preprocedural laboratory examination (principal); N13.5 Crossing vessel and stricture of ureter without hydronephrosis; Z96.0 Presence of urogenital implants | CPT/HCPCS: 87086 ==

== ENCOUNTER 2024-05-20 09:54 | Day surgery (SDC) | payer OTHER ==
[2024-05-14 11:59] VITALS: BMI 24.7
[2024-05-20] MEDS ORDERED: Iopamidol 15 ML ONE (11:20)
[2024-05-20] MEDS ORDERED: PROPOFOL 20 ML ONE (11:21)
[2024-05-20] MEDS ORDERED: Midazolam HCl 2 mg/2 ml Vial ONE (11:21)
[2024-05-20] MEDS ORDERED: fentaNYL 50 mcg/mL 1 mL Vial ONE (11:21)
[2024-05-20] MEDS ORDERED: LevoFLOXacin D5W 500 mg (100 mL) BAG ONE (11:35)
[2024-05-20] MEDS ORDERED: Lidocaine 1% PF 5 ML VIAL ONE (11:52)
[2024-05-20] MEDS ORDERED: Ondansetron PF 4 MG/2 ML Vial ONE (11:54)
[2024-05-20] MEDS ORDERED: Dexamethasone 20 MG/5 ML VIAL ONE (11:54)
== END 2024-05-20 14:00 | disposition home or self-care (01) ==
LOC: SDC 09:54
PROVIDERS: ATTEND Urology
PROC: 0T778DZ Dilation of Left Ureter with Intraluminal Device, Via Natural or Artificial Opening Endoscopic (ICD-10-PCS; principal; 2024-05-20)
DX: N13.39 Other hydronephrosis (principal); E11.9 Type 2 diabetes mellitus without complications; I10 Essential (primary) hypertension; Z98.890 Other specified postprocedural states; Z79.899 Other long term (current) drug therapy; Z88.8 Allergy status to other drugs, medicaments and biological substances
CPT/HCPCS: 52332; 74420; C2617; J1100; J1956; J2250; J2405; J2704; J3010; Q9967

== ENCOUNTER 2024-06-21 10:15 | Outpatient (CLI) | payer OTHER | END 2024-06-21 10:16 | disposition home or self-care (01) | LOC: PET 10:15 | PROVIDERS: ATTEND Internal Medicine Hematology & Oncology | DX: C77.0 Secondary and unspecified malignant neoplasm of lymph nodes of head, face and neck (principal); C18.7 Malignant neoplasm of sigmoid colon; C50.111 Malignant neoplasm of central portion of right female breast | CPT/HCPCS: 78815; A9552 ==

== ENCOUNTER 2024-07-25 09:09 | Day surgery (SDC) | payer OTHER ==
[2024-07-25] MEDS ORDERED: diphenhydrAMINE 25 MG CAP ONE (10:55)
[2024-07-25] MEDS ORDERED: Acetaminophen 500 MG TAB ONE (10:55)
[2024-07-25] MEDS: Acetaminophen 500 MG TAB PO SCH (10:58)
[2024-07-25] MEDS: diphenhydrAMINE 25 MG CAP PO SCH (10:58)
[2024-07-25 14:03] VITALS: BP 136/63; TEMP 98.2
== END 2024-07-25 13:46 | disposition home or self-care (01) ==
LOC: ONC/OP 09:09
PROVIDERS: ATTEND Internal Medicine
DX: D64.9 Anemia, unspecified (principal); D69.6 Thrombocytopenia, unspecified; C50.111 Malignant neoplasm of central portion of right female breast; C77.0 Secondary and unspecified malignant neoplasm of lymph nodes of head, face and neck; C18.7 Malignant neoplasm of sigmoid colon; Z79.899 Other long term (current) drug therapy; Z88.1 Allergy status to other antibiotic agents; Z88.8 Allergy status to other drugs, medicaments and biological substances
CPT/HCPCS: 36430; 86850; 86900; 86901; 86920; J1642; P9016

== ENCOUNTER 2024-08-23 08:45 | Outpatient (CLI) | payer OTHER | END 2024-08-23 08:46 | disposition home or self-care (01) | LOC: PET 08:45 | PROVIDERS: ATTEND Internal Medicine Hematology & Oncology | DX: C18.7 Malignant neoplasm of sigmoid colon (principal); C50.111 Malignant neoplasm of central portion of right female breast; C77.0 Secondary and unspecified malignant neoplasm of lymph nodes of head, face and neck; Z79.899 Other long term (current) drug therapy | CPT/HCPCS: 78815; A9552 ==

== ENCOUNTER 2025-02-05 09:30 | Outpatient (CLI) | payer OTHER | END 2025-02-05 09:31 | disposition home or self-care (01) | LOC: PET 09:30 | PROVIDERS: ATTEND Internal Medicine Hematology & Oncology | DX: C18.7 Malignant neoplasm of sigmoid colon (principal); C50.111 Malignant neoplasm of central portion of right female breast; C77.0 Secondary and unspecified malignant neoplasm of lymph nodes of head, face and neck; D70.8 Other neutropenia; K59.39 Other megacolon; J90 Pleural effusion, not elsewhere classified; J98.11 Atelectasis; R59.0 Localized enlarged lymph nodes; Z95.828 Presence of other vascular implants and grafts; R60.1 Generalized edema; Z79.899 Other long term (current) drug therapy | CPT/HCPCS: 78815; A9552 ==